=== PATIENT | female | born 1955 | race Caucasian/White ===

== ENCOUNTER 2017-05-15 08:48 | Outpatient (CLI) | payer BC, OTHER ==
--- NOTE | 2017-05-15 11:46 | MMO ---
BILATERAL SCREENING MAMMOGRAMS: Comparison is made to prior mammogram exams dating from 2013, 2014, 2015, and . Interpreted with computer-aided detection. Scattered fibroglandular densities. Scattered benign-appearing calcifications. Intramammary lymph node outer left breast is stable. Biopsy clip in the outer upper left breast again noted. No inter tierney change. Recommend 1-year followup. IMPRESSION: BIRADS 2: Benign Finding(s) Routine annual screening mammography (for women over age 40) POS: [facility]
== END 2017-05-15 08:49 | disposition home or self-care (01) ==
LOC: SCSMAMMO 08:48
PROVIDERS: ATTEND Nurse Practitioner
DX: Z12.31 Encounter for screening mammogram for malignant neoplasm of breast (principal)
CPT/HCPCS: 77067; G0202

== ENCOUNTER 2017-08-16 06:30 | Day surgery (SDC) | payer BC, OTHER ==
[2017-08-15 11:03] VITALS: BMI 28.8
[2017-08-16 07:42] LABS: #Eosinphils 0.1 thou/uL (0.0-0.7); #Monocytes 0.5 thou/uL (0.11-0.59); #Neutrophils 2.9 thou/uL (1.40-6.50); %Basophils 0.8 % (0.0-1.0); %Lymphocytes 35.6 % (21.0-51.0); %Monocytes 9.1 % (0.0-10.0); %Neutrophils 52.6 % (42.0-75.0); Hemoglobin 14.5 g/dL (12.0-16.0); Mean Corpuscular HGB CONC 34.3 g/dL (32.0-36.0); Mean Corpuscular Hemoglobin 33.3 pg (27.0-31.0); Mean Corpuscular Volume 97.1 fl (81.0-99.0); Mean Platelet Volume 8.1 fL (7.4-10.4); Platelet Count 218 thou/uL (130-400); RBC Distribution Width 11.5 % (11.5-14.5); Red Blood Cell (RBC) Count 4.36 mill/uL (4.20-5.40); White Blood Cell (WBC) Count 5.5 thou/uL (4.8-10.8)
[2017-08-16] MEDS ORDERED: CEFAZOLIN/Water 2 GM/20 ML SYRINGE ONE (07:46)
[2017-08-16] MEDS ORDERED: Diprivan 20 ML ONE (07:52)
[2017-08-16 08:06] LABS: Anion Gap 11 mmol/L (10-20); BUN (Urea Nitrogen) 18 mg/dL (9.8-20.1); Calc. Creatinine Clearance 83 mL/min (70-130); Calcium 9.6 mg/dL (7.8-10.44); Carbon Dioxide 26 mmol/L (23-31); Chloride 108 mmol/L (98-107); Estimated GFR-MDRD 61; Glucose 100 mg/dL (80-115); Sodium 141 mmol/L (136-145)
[2017-08-16] MEDS ORDERED: Fentanyl 100 MCG/2 ML VIAL ONE (09:44)
--- NOTE | 2017-08-16 10:38 | OP ---
PREOPERATIVE DIAGNOSIS: Medial and lateral meniscus tear. POSTOPERATIVE DIAGNOSIS: Medial and lateral meniscus tear. SURGEON: Roger Dodson M.D. ANESTHESIA: General. BLOOD LOSS: Minimal. SPECIMEN: None. DRAINS: None. COMPLICATIONS: None. TOURNIQUET TIME: None. FINDINGS AT SURGERY: Grade II chondromalacia patellofemoral joint with small areas of grade III deja dromalacia medial femoral condyle, intact lateral compartment articular cartilage, small tear in the central portion of the lateral meniscus, extensive tear involving most of the posterior medial menisc us. DESCRIPTION OF PROCEDURE: After appropriate consent was obtained, the patient was taken to the opera ting room where general anesthesia was induced. Left leg was prepped and draped in the usual sterile fashion. Scope was placed in the lateral portal and probe was placed in the medial portal. The med ial meniscus was debrided using a 4-0 full radius resector. After removing the loose fibrillated mat erial, I used a large basket forceps to remove a good portion of the posterior half of the medial men iscus. This was then debrided with the shaver and probed and found to be stable. She had unstable a rticular cartilage flap tears in the medial femoral condyle, which were also debrided and lateral men iscus tear with small was debrided with a small basket smoothed using a 4-0 full radius resector. Me niscus was probed on both sides confirmed to be stable. Knee was drained and sterile dressings appli ed. There were no complications.
[2017-08-16] MEDS ORDERED: Bupivacaine HCl 0.5%/Epinephrine 1:200,000/PF 30 ml Vial ONE (11:45)
[2017-08-16] MEDS ORDERED: Lidocaine 2% w/Epinephrine 1:200K 20 ML VIAL ONE (11:45)
[2017-08-16] MEDS ORDERED: Lidocaine 1% PF 5 ML VIAL ONE (12:25)
[2017-08-16] MEDS ORDERED: ePHEDrine/0.9% NaCl/PF SYRINGE 50 mg/10 ml ONE (12:25)
[2017-08-16] MEDS ORDERED: Propofol 200 MG/20 ML VIAL ONE (12:25)
[2017-08-16] MEDS ORDERED: Glycopyrrolate 0.2 MG/ML 5 ML SYRINGE ONE (12:25)
--- NOTE | 2017-08-17 07:17 | EKG ---
Test Reason : PREOP Blood Pressure : / mmHG Vent. Rate : 049 BPM Atrial Rate : 049 BPM P-R Int : 174 ms QRS Dur : 086 ms QT Int : 464 ms P-R-T Axes : 046 015 022 degrees QTc Int : 419 ms Marked sinus bradycardia Nonspecific ST abnormality Abnormal ECG No previous ECGs available Confirmed by ASHLEY LI, DR. Pak ([id number]) on 08/17/2017 7:16:33 AM Referred By: RADHA Confirmed By:DR. Pasha RAMIREZ MD
== END 2017-08-16 12:52 | disposition home or self-care (01) ==
LOC: SDC 06:30
PROVIDERS: ATTEND Orthopaedic Surgery
DX: S83.282A Other tear of lateral meniscus, current injury, left knee, initial encounter (principal); S83.242A Other tear of medial meniscus, current injury, left knee, initial encounter; M22.42 Chondromalacia patellae, left knee; J45.909 Unspecified asthma, uncomplicated; Z79.1 Long term (current) use of non-steroidal anti-inflammatories (NSAID); Z79.899 Other long term (current) drug therapy; Z90.710 Acquired absence of both cervix and uterus; Z90.49 Acquired absence of other specified parts of digestive tract; Z90.89 Acquired absence of other organs; Z98.890 Other specified postprocedural states
CPT/HCPCS: 36415; 80048; 85025; 93005; 93010; G8978-GP-CI; G8979-GP-CI; G8980-GP-CI; J0670; J2001; J2704; J3010

== ENCOUNTER 2017-11-26 12:08 | Outpatient (CLI) | payer OTHER ==
[2017-11-26 12:24] VITALS: BMI 29.1
[2017-11-26 14:09] LABS: #Basophils 0.1 thou/uL (0.0-0.2); #Eosinphils 0.1 thou/uL (0.0-0.7); #Monocytes 0.5 thou/uL (0.11-0.59); #Neutrophils 2.7 thou/uL (1.40-6.50); %Basophils 1.1 % (0.0-1.0); %Eosinophils 1.1 % (0.0-10.0); %Lymphocytes 36.9 % (21.0-51.0); %Monocytes 9.5 % (0.0-10.0); %Neutrophils 51.4 % (42.0-75.0); Mean Corpuscular HGB CONC 33.9 g/dL (32.0-36.0); Mean Corpuscular Hemoglobin 32.5 pg (27.0-31.0); Mean Corpuscular Volume 95.9 fl (81.0-99.0); Mean Platelet Volume 8.4 fL (7.4-10.4); Platelet Count 234 thou/uL (130-400); RBC Distribution Width 11.2 % (11.5-14.5); Red Blood Cell (RBC) Count 4.32 mill/uL (4.20-5.40); White Blood Cell (WBC) Count 5.3 thou/uL (4.8-10.8)
[2017-11-26 14:13] LABS: Bilirubin Negative (Negative); Blood, Urine Negative (Negative); Clarity CLEAR (Clear); Glucose, Urine (Dipstick) Negative (Negative); Leukocyte Trace (Negative); Nitrite Negative (Negative); Protein, Urine (Dipstick) Negative (Neg-Trace); Specific Gravity, Urine 1.012 (1.002-1.036); Urobilinogen 0.2 mg/dL (0.2-1.0); pH, Urine 7.5 (5.0-9.0)
[2017-11-26 14:16] LABS: PTT 27.7 SEC (22.9-36.1); Prothrombin Time 13.8 SEC (12.0-14.7)
[2017-11-26 14:17] LABS: Bacteria/HPF None Seen HPF (None Seen); Hyaline Casts/LPF 0-3 HYALINE CAST LPF (0-3 Hyaline); RBC/HPF 0-3 HPF (0-3); Squamous Epithelial 0-3 HPF (0-3); WBC/HPF None Seen HPF (0-3)
[2017-11-26 14:27] LABS: Anion Gap 14 mmol/L (10-20); BUN (Urea Nitrogen) 16 mg/dL (9.8-20.1); Calc. Creatinine Clearance 90 mL/min (70-130); Calcium 9.2 mg/dL (7.8-10.44); Carbon Dioxide 23 mmol/L (23-31); Chloride 107 mmol/L (98-107); Estimated GFR-MDRD 67; Glucose 76 mg/dL (80-115); Potassium 4.7 mmol/L (3.5-5.1); Sodium 139 mmol/L (136-145)
== END 2017-11-26 12:09 | disposition home or self-care (01) ==
LOC: LABBT 12:08
PROVIDERS: ATTEND Orthopaedic Surgery
DX: Z01.812 Encounter for preprocedural laboratory examination (principal); M16.11 Unilateral primary osteoarthritis, right hip
CPT/HCPCS: 80048; 81001; 85025; 85610; 85730; 86850; 86900; 86901; 87081

== ENCOUNTER 2017-11-26 12:30 | Inpatient (IN) | payer OTHER ==
[2017-12-03] MEDS ORDERED: CEFAZOLIN/Water 2 GM/20 ML SYRINGE ONE (05:55)
[2017-12-03] MEDS ORDERED: Vancomycin HCl 1.5 GM in Sodium Chloride 0.9% 250 ML 300 ML IVPB SCH (06:00)
[2017-12-03] MEDS ORDERED: Midazolam HCl 2 mg/2 ml Vial ONE (06:34)
[2017-12-03] MEDS ORDERED: Fentanyl 100 MCG/2 ML VIAL ONE (06:34)
[2017-12-03] MEDS ORDERED: Bupivacaine 0.25% 10 ML VIAL EPIDURAL PRN ×2 (07:30→08:37)
[2017-12-03] MEDS ORDERED: Naloxone HCl 0.4 mg/ml Vial IVP PRN ×3 (07:30→08:37)
[2017-12-03] MEDS ORDERED: HYDROcodone/Acetaminophen 5/325 mg Tablet PO PRN ×2 (07:30)
[2017-12-03] MEDS ORDERED: traMADol HCl 50 MG TAB PO PRN ×3 (07:30→09:09)
[2017-12-03] MEDS ORDERED: Promethazine HCl 25 MG/ML VIAL IM PRN ×4 (07:30→09:09)
[2017-12-03] MEDS ORDERED: diphenhydrAMINE 50 MG/ML VIAL IM PRN ×2 (07:30→08:37)
[2017-12-03] MEDS ORDERED: Hydrocerin (Eucerin) Cream 120 gm Jar TOP PRN (07:30)
[2017-12-03] MEDS ORDERED: Promethazine HCl 25 MG SUPP PR PRN ×2 (07:30→08:37)
[2017-12-03] MEDS ORDERED: Ondansetron HCl/PF 4 MG/2 ML Vial IVP PRN ×4 (07:30→09:09)
[2017-12-03] MEDS ORDERED: fentaNYL Citrate/PF 1,250 MCG, Bupivacaine 25 ML in Sodium Chloride 0.9% 250 ML 200 ML EPIDURAL SCH (07:30)
[2017-12-03] MEDS ORDERED: Naloxone HCl 0.4 mg/ml Vial IV PRN (07:30)
[2017-12-03] MEDS ORDERED: diphenhydrAMINE 50 MG/ML VIAL IVP PRN ×2 (07:30→08:37)
[2017-12-03] MEDS ORDERED: Zolpidem Tartrate 5 MG TAB PO PRN ×3 (07:30→09:09)
[2017-12-03] MEDS ORDERED: diphenhydrAMINE 25 MG CAP PO PRN ×3 (07:30→09:09)
[2017-12-03] MEDS ORDERED: Bupivacaine/Epinephrine 0.25% 30 ML VIAL ONE (07:33)
[2017-12-03] MEDS ORDERED: Bupivacaine 0.25% HCL 30 ML VIAL ONE (07:36)
[2017-12-03] MEDS ORDERED: Promethazine HCl 25 MG/ML VIAL SLOW IVP PRN (08:37)
[2017-12-03] MEDS ORDERED: Eucerin (Mineral Oil/Petrolatum,White) 30 gm Jar TOP PRN (08:37)
[2017-12-03] MEDS ORDERED: Communication Order-Pharmacy FS SCH ×2 (08:45)
[2017-12-03] MEDS ORDERED: Fentanyl 5 MCG/ 0.75% Bupivacaine 250 ML CADD EPIDURAL SCH (08:45)
[2017-12-03] MEDS ORDERED: Acetaminophen/Codeine 30-300mg Tablet PO PRN ×2 (09:09)
[2017-12-03] MEDS ORDERED: Acetaminophen 325 MG TAB PO PRN ×2 (09:09→11:11)
[2017-12-03] MEDS ORDERED: Fentanyl 100 MCG/2 ML VIAL SLOW IVP PRN ×2 (09:09)
[2017-12-03] MEDS ORDERED: Tranexamic Acid 1,000 MG in Sodium Chloride 0.9% 100 ML IVPB SCH (09:15)
--- NOTE | 2017-12-03 09:45 | RAD ---
TWO VIEWS RIGHT HIP: Comparison: None. History: Status post right hip arthroplasty. FINDINGS: Two views of the right hip shows the patient to be status post right hip arthroplasty without perihar dware lucency or fracture. Surrounding soft tissue swelling and air in the soft tissues is from recen t surgery. IMPRESSION: Status post right hip arthroplasty without evidence of complication. POS: [facility]
[2017-12-03] MEDS ORDERED: Artificial Tears 18 DROP/0.9 ML EA EYE PRN (11:11)
[2017-12-03] MEDS ORDERED: Milk Of Magnesia 30 ML UDCUP PO PRN (11:11)
[2017-12-03] MEDS ORDERED: hydrALAZINE 20 MG/ML VIAL SLOW IVP PRN (11:11)
[2017-12-03] MEDS ORDERED: Diabetic Tussin 200 MG/10 ML UDCUP PO PRN (11:11)
[2017-12-03] MEDS ORDERED: Mag-Al 1200 mg/1200 mg/30 ML UDCUP PO PRN (11:11)
[2017-12-03] MEDS ORDERED: Chloraseptic Spray 180 ml Bottle PO PRN (11:11)
[2017-12-03] MEDS ORDERED: Loperamide HCl 2 MG CAP PO PRN (11:11)
[2017-12-03] MEDS ORDERED: Ondansetron ODT 4 MG TAB PO PRN (11:11)
[2017-12-03] MEDS ORDERED: Bisacodyl 10 MG SUPP PR PRN (11:11)
[2017-12-03] MEDS ORDERED: Albuterol Sulfate 2.5 mg/3 ml Neb NEB PRN (11:12)
--- NOTE | 2017-12-03 12:03 | CON ---
DATE OF CONSULTATION: 12/03/2017 PRIMARY CARE PHYSICIAN: Sg Orlando at [facility]. PRIMARY ATTENDING: Roger Dodson M.D. REASON FOR ADMISSION: Elective admission for right total hip replacement. REASON FOR CONSULT: Medical comanagement. HISTORY OF PRESENT ILLNESS: A 62-year-old female who has ongoing right hip pain. Pain is getting wo rse with walking. Patient's pain is gradually getting worse and she failed outpatient conservative t herapy. Now a days, the patient's right hip was bothering her daily activities and that was limiting her physical activity and that is why patient decided to go for hip replacement. Dr. West bates id right hip replacement earlier today without any complication. Postoperatively, at [facility], we were consulted for medical comanagement. Patient denies any currently chest pain, palpitation, shortness of breath. She denies any UTI sympto ms. She denies any constipation or diarrhea. She denies any abdominal pain. She denies any headach e or sore throat. REVIEW OF SYSTEMS: The following complete review of systems was negative, unless otherwise mentioned in the HPI or below: Constitutional: Weight loss or gain, ability to conduct usual activities. Skin: Rash, itching. Eyes: Double vision, pain. ENT/Mouth: Nose bleeding, neck stiffness, pain, tenderness. Cardiovascular: Palpitations, dyspnea on exertion, orthopnea. Respiratory: Shortness of breath, wheezing, cough, hemoptysis, fever or night sweats. Gastrointestinal: Poor appetite, abdominal pain, heartburn, nausea, vomiting, constipation, or diarr hea. Genitourinary: Urgency, frequency, dysuria, nocturia. Musculoskeletal: Pain, swelling. Neurologic/Psychiatric: Anxiety, depression. Allergy/Immunologic: Skin rash, bleeding tendency. Please see my HPI for pertinent positive and negative. All other review of systems reviewed and nega tive except as mentioned in the HPI. HOSPITAL COURSE: Reviewed. PAST MEDICAL HISTORY: Rheumatic fever when she was 5 years of age, mild intermittent asthma, fibromy algia, vitamin D deficiency. PAST SURGICAL HISTORY: Tonsillectomy, appendicectomy, uterine suspension, cholecystectomy, left danielle st biopsy, hysterectomy, and status post right total hip replacement. PAST PSYCHIATRIC HISTORY: Anxiety and depression. FAMILY HISTORY: Father has hypertension and history of colon cancer. Mother does not have any medic al problem. Hypertension runs among siblings. SOCIAL HISTORY: Patient is . She denies any tobacco, alcohol or illicit drug abuse. Patient is RN. ALLERGIES: No known drug allergy. CURRENT HOME MEDICATIONS: Cetirizine 10 mg p.o. daily, Prozac 60 mg p.o. daily, Mobic 15 mg p.o. yaniv ly, and Inderal 10 mg p.o. daily. PHYSICAL EXAMINATION: VITAL SIGNS: Currently, blood pressure 125/68, pulse 70, respiratory rate 18, saturation 95% on room air, weight 190 pounds. GENERAL: Patient is currently alert, awake, no obvious acute distress. HEAD: Normocephalic, atraumatic. EYES: Pupils round, reactive to light. Extraocular muscle intact. ENT: Oropharynx within normal limits. Moist mucous membranes. No oral lesion, no pharyngeal erythe ma, no exudate. NECK: Supple, no JVD, no thyromegaly, no carotid bruit, no jugular venous distention. LUNGS: Clear to auscultation without any rhonchi or rales. CARDIAC: S1 and S2 regular. No murmur, no gallop, no rub. ABDOMEN: Soft, bowel sounds present, nontender, nondistended. No organomegaly, no mass, no suprapub ic tenderness. BACK: Examination unremarkable, no CVA tenderness. EXTREMITIES: Upper extremity passive movement of all joints are normal. Lower extremity, right hip surgical site is covered with dressing. SCDs in place. No edema, no calf tenderness. Good distal p ulsation. SKIN: No skin rash. HEMATOLOGICAL SYSTEM: No lymphadenopathy. PSYCHIATRIC: Normal affect. NEUROLOGIC: Nonfocal examination. Patient is moving all 4 limbs. Plantar bilateral flexor. SIGNIFICANT LABORATORY DATA AND IMAGING DATA: CBC: WBC 5.3, hemoglobin 14.0, and platelet 234. INR 1.0. BMP: Sodium 139, potassium 4.7, chloride 107, carbon dioxide 23, anion gap 14, BUN 16, creati nine 0.86, glucose 76, calcium 9.2. Urinalysis; leukocyte esterase trace. Hip x-ray reviewed. ASSESSMENT AND PLAN/IMPRESSION: 1. Status post right total hip replacement for advanced osteoarthritis of right hip. The patient is currently on aspirin for deep venous thrombosis prophylaxis. Patient has epidural in place, which i s controlling her pain. We will continue pain medication for better pain control. Patient will have physical therapy/occupational therapy as per [facility] protocol treatment. Patient will be g iven stool softener to prevent constipation. The patient will be given ferrous gluconate 324 mg p.o. b.i.d. postoperatively. 2. Mild intermittent asthma. We will continue albuterol nebulization q.6 hourly p.r.n. basis. 3. Anxiety and depression. We will continue Prozac 60 mg p.o. daily. 4. Vitamin D deficiency. We will continue vitamin D3 1000 units p.o. daily. 5. Fibromyalgia. Patient's pain will be controlled with pain medication. 6. Deep venous thrombosis prophylaxis. The patient is already on aspirin therapy per protocol. 7. Gastrointestinal prophylaxis, Pepcid 20 mg p.o. b.i.d. 8. Code status: The patient is FULL CODE. Patient's is surrogate decision maker. Disposition plan based on clinical course. Thank you for the consult. We will follow up with you while in hospital. Plan of care discussed wit h the patient and her at bedside.
[2017-12-03] MEDS: Sodium Chloride 0.9% 1,000 ML IV SCH ×2 (12:59→19:47)
[2017-12-03] MEDS ORDERED: Dexamethasone 20 MG/5 ML VIAL ONE (13:32)
[2017-12-03] MEDS ORDERED: ePHEDrine/0.9% NaCl/PF SYRINGE 50 mg/10 ml ONE (13:32)
[2017-12-03] MEDS ORDERED: PROPOFOL 200 MG/20 ML VIAL ONE (13:32)
[2017-12-03] MEDS ORDERED: Glycopyrrolate 0.2 MG/ML 5 ML SYRINGE ONE ×2 (13:32)
[2017-12-03] MEDS: Ketorolac Tromethamine 30 MG/ML VIAL IVP SCH ×3 (14:03→23:24)
[2017-12-03] MEDS: CEFAZOLIN/Water 2 GM/20 ML SYRINGE SLOW IVP SCH ×2 (15:35→23:22)
[2017-12-03] MEDS: Aspirin 325 MG TAB PO SCH (20:29)
[2017-12-03] MEDS: Famotidine 20 MG TAB PO SCH (20:29)
[2017-12-04] MEDS: Ketorolac Tromethamine 30 MG/ML VIAL IVP SCH ×4 (05:46→23:35)
[2017-12-04 05:52] LABS: Hemoglobin 10.1 g/dL (12.0-16.0); Mean Corpuscular HGB CONC 33.4 g/dL (32.0-36.0); Mean Corpuscular Hemoglobin 31.8 pg (27.0-31.0); Mean Corpuscular Volume 95.3 fl (81.0-99.0); Mean Platelet Volume 8.1 fL (7.4-10.4); Platelet Count 169 thou/uL (130-400); Red Blood Cell (RBC) Count 3.19 mill/uL (4.20-5.40); White Blood Cell (WBC) Count 9.4 thou/uL (4.8-10.8)
[2017-12-04] MEDS: Sodium Chloride 0.9% 1,000 ML IV SCH ×3 (06:47→23:27)
[2017-12-04] MEDS: Aspirin 325 MG TAB PO SCH ×2 (07:50→20:20)
[2017-12-04] MEDS: Ferrous Gluconate 324 MG TAB PO SCH ×2 (07:50→20:21)
[2017-12-04] MEDS: Propranolol 10 MG TAB PO SCH (07:50)
[2017-12-04] MEDS: Famotidine 20 MG TAB PO SCH ×2 (07:51→20:21)
[2017-12-04] MEDS: Senokot S 8.6-50 MG TAB PO SCH ×2 (07:51→20:20)
[2017-12-04] MEDS: Multivitamin W/ Minerals 1 TAB PO SCH (07:51)
[2017-12-04] MEDS: FLUoxetine HCl 20 MG CAP PO SCH (07:51)
[2017-12-04] MEDS: Loratadine 10 MG TAB PO SCH (07:52)
--- NOTE | 2017-12-04 10:15 | PDOC.PN ---
- Subjective Encounter Start Date: 12/04/17 Encounter Start Time: 08:20 -: old records requested/rev Patient seen and examined for medical management. No new complaints. No overnight events pain controlled, overall doing well - Objective Resuscitation Status: Resuscitation Status FULL:Full Resuscitation MAR Reviewed: Yes Vital Signs & Weight: Vital Signs (12 hours) Temp Pulse Resp BP BP Pulse Ox 12/04/17 07:37 97.4 F L 72 16 99/66 95 12/04/17 06:00 103/67 12/04/17 04:18 98.6 F 72 15 92/56 L 96 12/03/17 23:24 98.5 F 65 18 95/60 65 L I&O: 12/03/17 12/04/17 12/05/17 06:59 06:59 06:59 Intake Total 3300 Output Total 1700 Balance 1600 Result Diagrams: 12/04/17 05:29 Phys Exam - Physical Examination Constitutional: NAD HEENT: PERRLA, moist MMs, sclera anicteric Neck: no JVD, supple Respiratory: no wheezing, no rales, no rhonchi Cardiovascular: RRR, no significant murmur, no rub Gastrointestinal: soft, non-tender, no distention, positive bowel sounds Musculoskeletal: no edema, pulses present epidural in place, surgical site with dressing Neurological: non-focal, normal sensation, moves all 4 limbs Psychiatric: normal affect, A&O x 3 Skin: no rash, normal turgor Dx/Plan (1) Status post total hip replacement, right Code(s): Z96.641 - PRESENCE OF RIGHT ARTIFICIAL HIP JOINT Status: Acute (2) Anemia, normocytic normochromic Code(s): D64.9 - ANEMIA, UNSPECIFIED Status: Chronic (3) Anxiety and depression Code(s): F41.9 - ANXIETY DISORDER, UNSPECIFIED; F32.9 - MAJOR DEPRESSIVE DISORDER, SINGLE EPISODE, UNSPECIFIED Status: Chronic (4) Asthma Code(s): J45.909 - UNSPECIFIED ASTHMA, UNCOMPLICATED Status: Chronic (5) Fibromyalgia Status: Chronic (6) Osteoarthritis Code(s): M19.90 - UNSPECIFIED OSTEOARTHRITIS, UNSPECIFIED SITE Status: Chronic (7) Vitamin D deficiency Code(s): E55.9 - VITAMIN D DEFICIENCY, UNSPECIFIED Status: Chronic - Plan cont current plan of care, PT/OT, DVT proph w/SCDs * pt is on aspirin for DVT prophylaxis as per [facility] protocol * continue PT/OT as per [facility] protocol * pain control with pain meds as below * epidural as per anesthesia * medication reviewed as below * symptomatic treatment * continue pepcid for GI prophylaxis. Review of Systems - Review of Systems Eyes: negative: Pain, Vision Change, Conjunctivae Inflammation, Eyelid Inflammation, Redness, Other ENT: negative: Ear Pain, Ear Discharge, Nose Pain, Nose Discharge, Nose Congestion, Mouth Pain, Mouth Swelling, Throat Pain, Throat Swelling, Other Respiratory: negative: Cough, Dry, Shortness of Breath, Hemoptysis, SOB with Excertion, Pleuritic Pain, Sputum, Wheezing Cardiovascular: negative: chest pain, palpitations, orthopnea, paroxysmal nocturnal dyspnea, edema, light headedness, other Gastrointestinal: negative: Nausea, Vomiting, Abdominal Pain, Diarrhea, Constipation, Melena, Hematochezia, Other Genitourinary: negative: Dysuria, Frequency, Incontinence, Hematuria, Retention , Other Musculoskeletal: negative: Neck Pain, Shoulder Pain, Arm Pain, Back Pain, Hand Pain, Leg Pain, Foot Pain, Other Skin: negative: Rash, Lesions, Jaime, Bruising, Other - Medications/Allergies Allergies/Adverse Reactions: Allergies Allergy/AdvReac Type Severity Reaction Status Date / Time No Known Allergies Allergy Unverified 08/15/17 11:02 Medications: Current Medications Acetaminophen (Tylenol) 650 mg PO Q4H PRN PRN Reason: Headache/Fever or Mild Pain Hydrocodone Bitart/Acetaminophen ([place] 5/325) 1 tab PO Q4H PRN PRN Reason: Mild Pain 0-3 Hydrocodone Bitart/Acetaminophen ([place] 5/325) 2 tab PO Q4H PRN PRN Reason: For Moderate Pain 4-6 Al Hydroxide/Mg Hydroxide (Maalox) 15 ml PO Q4H PRN PRN Reason: Heartburn or Indigestion Albuterol Sulfate (Ventolin) 2.5 mg NEB [id number] PRN PRN Reason: Wheezing Artificial Tears (Tears Naturale) 0 drop EA EYE PRN PRN PRN Reason: Dry Eyes Aspirin (Aspirin) 325 mg PO BID [facility] Last Admin: 12/04/17 07:50 Dose: 325 mg Bisacodyl (Dulcolax) 10 mg CA DAILYPRN PRN PRN Reason: Constipation Diphenhydramine HCl (Benadryl) 25 mg PO Q3H PRN PRN Reason: Itching Diphenhydramine HCl (Benadryl) 25 mg IM Q3H PRN PRN Reason: Itching Diphenhydramine HCl (Benadryl) 25 mg IVP Q3H PRN PRN Reason: Itching Emollient Cream (Hydrocerin Cream) 0 gm TOP PRN PRN PRN Reason: Itching Famotidine (Pepcid) 20 mg PO BID [facility] Last Admin: 12/04/17 07:51 Dose: 20 mg Ferrous Gluconate (Fergon) 324 mg PO BID [facility] Last Admin: 12/04/17 07:50 Dose: 324 mg Fluoxetine HCl (Prozac) 60 mg PO DAILY [facility] Last Admin: 12/04/17 07:51 Dose: 60 mg Guaifenesin (Robitussin Sf) 200 mg PO Q4H PRN PRN Reason: Cough Hydralazine HCl (Apresoline) 10 mg SLOW IVP Q4H PRN PRN Reason: Systolic BP > 180 Fentanyl Citrate 1,250 mcg/Bupivacaine HCl 25 ml/ Sodium Chloride 250 mls @ 4 mls/hr EPIDURAL INF [facility] Sodium Chloride (Normal Saline 0.9%) 1,000 mls @ 100 mls/hr IV .Q10H [facility] Last Admin: 12/04/17 06:47 Dose: Not Given Iron/Minerals/Multivitamins (Theragran M) 1 tab PO DAILY [facility] Last Admin: 12/04/17 07:51 Dose: 1 tab Ketorolac Tromethamine (Toradol) 30 mg IVP Q6HR [facility] Stop: 12/05/17 06:01 Last Admin: 12/04/17 05:46 Dose: 30 mg Loperamide HCl (Imodium) 2 mg PO PRN PRN PRN Reason: Diarrhea/Loose Stools Loratadine (Claritin) 10 mg PO DAILY [facility] Last Admin: 12/04/17 07:52 Dose: 10 mg Magnesium Hydroxide (Milk Of Magnesium) 30 ml PO DAILYPRN PRN PRN Reason: Constipation Mineral Oil/White Petrolatum (Eucerin Cream) 0 gm TOP PRN PRN PRN Reason: Itching Miscellaneous Information (Communication Order-Pharmacy) 1 each FS ASDIR [facility] Miscellaneous Information (Communication Order-Pharmacy) 1 each FS ONE [facility] Stop: 12/05/17 08:46 Naloxone HCl (Narcan) 0.2 mg IV Q5MIN PRN PRN Reason: RR <=8 OR OBTUNDED/UNAROUSABLE Naloxone HCl (Narcan) 0.1 mg IVP Q15MIN PRN PRN Reason: URINARY RETENTION Ondansetron HCl (Zofran) 4 mg IVP Q6H PRN PRN Reason: Nausea/Vomiting Ondansetron HCl (Zofran Odt) 4 mg PO Q6H PRN PRN Reason: Nausea/Vomiting Phenol (Chloraseptic [place] 180 Ml Bot) 0 ml PO PRN PRN PRN Reason: Sore Throat Promethazine HCl (Phenergan) 12.5 mg IM Q4H PRN PRN Reason: Nausea Promethazine HCl (Phenergan Suppository) 25 mg CA Q4H PRN PRN Reason: Nausea/Vomiting Promethazine HCl (Phenergan Suppository) 25 mg CA Q4H PRN PRN Reason: Nausea/Vomiting Propranolol HCl (Inderal) 10 mg PO QAM [facility] Last Admin: 12/04/17 07:50 Dose: 10 mg Senna/Docusate Sodium (Senokot S) 2 tab PO BID [facility] Last Admin: 12/04/17 07:51 Dose: 2 tab Sodium Chloride (Flush - Normal Saline) 10 ml IVF PRN PRN PRN Reason: Saline Flush Tramadol HCl (Ultram) 50 mg PO Q6H PRN PRN Reason: Mild Pain 1-3 Tramadol HCl (Ultram) 100 mg PO Q6H PRN PRN Reason: Moderate Pain 4-6 Zolpidem Tartrate (Ambien) 5 mg PO HSPRN PRN PRN Reason: Insomnia
[2017-12-04 12:22] VITALS: BMI 29.1
[2017-12-05 05:38] LABS: Mean Corpuscular HGB CONC 33.3 g/dL (32.0-36.0); Mean Corpuscular Volume 95.9 fl (81.0-99.0); Mean Platelet Volume 8.2 fL (7.4-10.4); Platelet Count 147 thou/uL (130-400); RBC Distribution Width 11.1 % (11.5-14.5); Red Blood Cell (RBC) Count 3.13 mill/uL (4.20-5.40); White Blood Cell (WBC) Count 7.5 thou/uL (4.8-10.8)
[2017-12-05] MEDS: Ketorolac Tromethamine 30 MG/ML VIAL IVP SCH (06:11)
[2017-12-05] MEDS: Ferrous Gluconate 324 MG TAB PO SCH (08:52)
[2017-12-05] MEDS: FLUoxetine HCl 20 MG CAP PO SCH (08:52)
[2017-12-05] MEDS: Multivitamin W/ Minerals 1 TAB PO SCH (08:52)
[2017-12-05] MEDS: Senokot S 8.6-50 MG TAB PO SCH (08:52)
[2017-12-05] MEDS: Loratadine 10 MG TAB PO SCH (08:53)
[2017-12-05] MEDS: Famotidine 20 MG TAB PO SCH (08:53)
[2017-12-05] MEDS: Propranolol 10 MG TAB PO SCH (08:53)
[2017-12-05] MEDS: Aspirin 325 MG TAB PO SCH (08:53)
--- NOTE | 2017-12-05 09:24 | DIS ---
DATE OF ADMISSION: 12/03/2017 DATE OF DISCHARGE: 12/05/2017 PRIMARY CARE PHYSICIAN: Dr. Yobani Hernandez and Sg Bonner DISCHARGE DISPOSITION: Home with outpatient physical therapy. PRIMARY DISCHARGE DIAGNOSIS: Right total hip replacement. SECONDARY DISCHARGE DIAGNOSES: Anemia normocytic normochromic, anxiety and depression, asthma, fibro myalgia, osteoarthritis, vitamin D deficiency. PRIMARY PROCEDURE/OPERATION: Right hip replacement by Dr. Dodson. RADIOLOGICAL INVESTIGATION: Hip x-ray. SIGNIFICANT LABORATORY DATA: WBC 7.5, hemoglobin 10.0, platelet 147. DISCHARGE MEDICATIONS: Aspirin 325 mg p.o. b.i.d. for DVT prophylaxis, cetirizine 10 mg p.o. daily, Prozac 60 mg p.o. daily, [place] 5 one or two tablets q.4 hourly p.r.n., Mobic 15 mg p.o. daily, Indera l 10 mg p.o. daily. CONTRAINDICATIONS: None. CODE STATUS: FULL CODE. INPATIENT CONSULTANTS: Dr. Dodson was primary Sound Team was consulted for medical comanagement. TEST RESULTS PENDING ON DISCHARGE: None. ALLERGIES: No known drug allergy. DISCHARGE PLAN: Post hospital, the patient will follow up with outpatient physical therapy on 2017. Patient will follow up with Dr. Dodson on 12/25/2017 at 10:15 a.m. The patient will make appoi ntment with primary care physician. HOSPITAL COURSE: A 62-year-old female who was electively admitted by Dr. Dodson for right hip replac ement, which was done on 12/03/2017. Postoperatively, patient was at the [facility] [place]. At that point, we were consulted for medical comanagement. Please see my consult note for further detail. Mini zambrano in hospital, we continued her home medications. She was given aspirin for DVT prophylaxis, Pepc id for gastrointestinal prophylaxis and she had epidural for pain control. Her home medication was r esumed while in hospital as well as on discharge. The patient will have aspirin for DVT prophylaxis upon discharge. Her pain medication prescription given by primary team. The patient did very well per [facility] [place] protocol treatment and the patient is medically stable for discharge today. The patient is seen and examined at bedside today. All review of system reviewed with her and negati ve. PHYSICAL EXAMINATION: VITAL SIGNS: Currently, temperature 98.4, pulse 75, respiratory rate 16, saturation 95% on room air, blood pressure 94/62, and weight 186 pounds. GENERAL: The patient is currently alert, awake, no obvious acute distress. HEAD: Normocephalic, atraumatic. EYES: Pupils round, reactive to light. Extraocular muscle intact. ENT: Oropharynx within normal limits. Moist mucous membranes. NECK: Supple, no JVD, no thyromegaly, no carotid bruit. LUNGS: Clear to auscultation without any rhonchi. CARDIAC: S1 and S2 regular without any murmur. ABDOMEN: Soft and benign. EXTREMITIES: No edema. Surgical site is clean and healthy. NEUROLOGIC: Nonfocal examination. The patient will resume all her previous medication and new medication prescription given by primary care team. We will sign off.
--- NOTE | 2017-12-05 09:58 | PDOC.PN ---
- Subjective Encounter Start Date: 12/05/17 Encounter Start Time: 09:35 Patient seen and examined for medical management. No new complaints. No overnight events - Objective Resuscitation Status: Resuscitation Status FULL:Full Resuscitation MAR Reviewed: Yes Vital Signs & Weight: Vital Signs (12 hours) Temp Pulse Resp BP BP Pulse Ox 12/05/17 07:30 98.4 F 75 16 94/62 95 12/05/17 04:35 98.4 F 70 16 101/64 96 12/04/17 23:35 98.1 F 65 16 103/67 99 Weight Admit Weight 186 lb Weight 186 lb I&O: 12/04/17 12/05/17 12/06/17 06:59 06:59 06:59 Intake Total 3300 950 Output Total 1700 1900 Balance 1600 -950 Result Diagrams: 12/05/17 04:57 Phys Exam - Physical Examination Constitutional: NAD HEENT: PERRLA, moist MMs, sclera anicteric Neck: no JVD, supple Respiratory: no wheezing, no rales, no rhonchi Cardiovascular: RRR, no significant murmur, no rub Gastrointestinal: soft, non-tender, no distention, positive bowel sounds Musculoskeletal: no edema, pulses present Neurological: non-focal, normal sensation, moves all 4 limbs Psychiatric: normal affect, A&O x 3 Skin: no rash, normal turgor Dx/Plan (1) Status post total hip replacement, right Code(s): Z96.641 - PRESENCE OF RIGHT ARTIFICIAL HIP JOINT Status: Acute (2) Anemia, normocytic normochromic Code(s): D64.9 - ANEMIA, UNSPECIFIED Status: Chronic (3) Anxiety and depression Code(s): F41.9 - ANXIETY DISORDER, UNSPECIFIED; F32.9 - MAJOR DEPRESSIVE DISORDER, SINGLE EPISODE, UNSPECIFIED Status: Chronic (4) Asthma Code(s): J45.909 - UNSPECIFIED ASTHMA, UNCOMPLICATED Status: Chronic (5) Fibromyalgia Status: Chronic (6) Osteoarthritis Code(s): M19.90 - UNSPECIFIED OSTEOARTHRITIS, UNSPECIFIED SITE Status: Chronic (7) Vitamin D deficiency Code(s): E55.9 - VITAMIN D DEFICIENCY, UNSPECIFIED Status: Chronic - Plan cont current plan of care, PT/OT, social service manager, DVT proph w/SCDs * pt is currently on aspirin for DVT prophylaxis as per [facility] protocol * continue PT/OT as per [facility] protocol for now * outpt PT after discharge * pain controlled with pain meds as below * epidural will be removed today as per jasbir * medication reviewed as below * symptomatic treatment * continue pepcid for GI prophylaxis. * pt is planned for discharge today * resume home medication on discharge * stable for discharge medically * pain meds on discharge as per primary team * see my discharge summery. Review of Systems - Review of Systems Eyes: negative: Pain, Vision Change, Conjunctivae Inflammation, Eyelid Inflammation, Redness, Other ENT: negative: Ear Pain, Ear Discharge, Nose Pain, Nose Discharge, Nose Congestion, Mouth Pain, Mouth Swelling, Throat Pain, Throat Swelling, Other Respiratory: negative: Cough, Dry, Shortness of Breath, Hemoptysis, SOB with Excertion, Pleuritic Pain, Sputum, Wheezing Cardiovascular: negative: chest pain, palpitations, orthopnea, paroxysmal nocturnal dyspnea, edema, light headedness, other Gastrointestinal: negative: Nausea, Vomiting, Abdominal Pain, Diarrhea, Constipation, Melena, Hematochezia, Other Genitourinary: negative: Dysuria, Frequency, Incontinence, Hematuria, Retention , Other Musculoskeletal: negative: Neck Pain, Shoulder Pain, Arm Pain, Back Pain, Hand Pain, Leg Pain, Foot Pain, Other Skin: negative: Rash, Lesions, Jaime, Bruising, Other - Medications/Allergies Allergies/Adverse Reactions: Allergies Allergy/AdvReac Type Severity Reaction Status Date / Time No Known Allergies Allergy Unverified 08/15/17 11:02 Medications: Current Medications Acetaminophen (Tylenol) 650 mg PO Q4H PRN PRN Reason: Headache/Fever or Mild Pain Last Admin: 12/05/17 06:11 Dose: 650 mg Hydrocodone Bitart/Acetaminophen ([place] 5/325) 1 tab PO Q4H PRN PRN Reason: Mild Pain 0-3 Hydrocodone Bitart/Acetaminophen ([place] 5/325) 2 tab PO Q4H PRN PRN Reason: For Moderate Pain 4-6 Al Hydroxide/Mg Hydroxide (Maalox) 15 ml PO Q4H PRN PRN Reason: Heartburn or Indigestion Albuterol Sulfate (Ventolin) 2.5 mg NEB [id number] PRN PRN Reason: Wheezing Artificial Tears (Tears Naturale) 0 drop EA EYE PRN PRN PRN Reason: Dry Eyes Aspirin (Aspirin) 325 mg PO BID [facility] Last Admin: 12/05/17 08:53 Dose: 325 mg Bisacodyl (Dulcolax) 10 mg NC DAILYPRN PRN PRN Reason: Constipation Diphenhydramine HCl (Benadryl) 25 mg PO Q3H PRN PRN Reason: Itching Diphenhydramine HCl (Benadryl) 25 mg IM Q3H PRN PRN Reason: Itching Diphenhydramine HCl (Benadryl) 25 mg IVP Q3H PRN PRN Reason: Itching Emollient Cream (Hydrocerin Cream) 0 gm TOP PRN PRN PRN Reason: Itching Famotidine (Pepcid) 20 mg PO BID [facility] Last Admin: 12/05/17 08:53 Dose: 20 mg Ferrous Gluconate (Fergon) 324 mg PO BID [facility] Last Admin: 12/05/17 08:52 Dose: 324 mg Fluoxetine HCl (Prozac) 60 mg PO DAILY [facility] Last Admin: 12/05/17 08:52 Dose: 60 mg Guaifenesin (Robitussin Sf) 200 mg PO Q4H PRN PRN Reason: Cough Hydralazine HCl (Apresoline) 10 mg SLOW IVP Q4H PRN PRN Reason: Systolic BP > 180 Fentanyl Citrate 1,250 mcg/Bupivacaine HCl 25 ml/ Sodium Chloride 250 mls @ 4 mls/hr EPIDURAL INF [facility] Sodium Chloride (Normal Saline 0.9%) 1,000 mls @ 100 mls/hr IV .Q10H [facility] Last Admin: 12/04/17 23:27 Dose: Not Given Iron/Minerals/Multivitamins (Theragran M) 1 tab PO DAILY [facility] Last Admin: 12/05/17 08:52 Dose: 1 tab Loperamide HCl (Imodium) 2 mg PO PRN PRN PRN Reason: Diarrhea/Loose Stools Loratadine (Claritin) 10 mg PO DAILY [facility] Last Admin: 12/05/17 08:53 Dose: 10 mg Magnesium Hydroxide (Milk Of Magnesium) 30 ml PO DAILYPRN PRN PRN Reason: Constipation Mineral Oil/White Petrolatum (Eucerin Cream) 0 gm TOP PRN PRN PRN Reason: Itching Miscellaneous Information (Communication Order-Pharmacy) 1 each FS ASDIR [facility] Naloxone HCl (Narcan) 0.2 mg IV Q5MIN PRN PRN Reason: RR <=8 OR OBTUNDED/UNAROUSABLE Naloxone HCl (Narcan) 0.1 mg IVP Q15MIN PRN PRN Reason: URINARY RETENTION Ondansetron HCl (Zofran) 4 mg IVP Q6H PRN PRN Reason: Nausea/Vomiting Ondansetron HCl (Zofran Odt) 4 mg PO Q6H PRN PRN Reason: Nausea/Vomiting Phenol (Chloraseptic [place] 180 Ml Bot) 0 ml PO PRN PRN PRN Reason: Sore Throat Promethazine HCl (Phenergan) 12.5 mg IM Q4H PRN PRN Reason: Nausea Promethazine HCl (Phenergan Suppository) 25 mg NC Q4H PRN PRN Reason: Nausea/Vomiting Promethazine HCl (Phenergan Suppository) 25 mg NC Q4H PRN PRN Reason: Nausea/Vomiting Propranolol HCl (Inderal) 10 mg PO QAM [facility] Last Admin: 12/05/17 08:53 Dose: Not Given Senna/Docusate Sodium (Senokot S) 2 tab PO BID [facility] Last Admin: 12/05/17 08:52 Dose: 2 tab Sodium Chloride (Flush - Normal Saline) 10 ml IVF PRN PRN PRN Reason: Saline Flush Last Admin: 12/04/17 18:22 Dose: 10 ml Tramadol HCl (Ultram) 50 mg PO Q6H PRN PRN Reason: Mild Pain 1-3 Tramadol HCl (Ultram) 100 mg PO Q6H PRN PRN Reason: Moderate Pain 4-6 Zolpidem Tartrate (Ambien) 5 mg PO HSPRN PRN PRN Reason: Insomnia
[2017-12-05 12:08] VITALS: BP 91/56; TEMP 98.3
[2017-12-05] MEDS: Sodium Chloride 0.9% 1,000 ML IV SCH (13:13)
--- NOTE | 2017-12-10 10:24 | OP ---
DATE OF PROCEDURE: 12/03/2017 PREOPERATIVE DIAGNOSIS: End-stage bicompartmental osteoarthritis, right hip. POSTOPERATIVE DIAGNOSIS: End-stage bicompartmental osteoarthritis, right hip. PROCEDURE: Press-fit right total hip arthroplasty. SURGEON: Roger Dodson M.D. PHYSICAL THERAPY PROFESSOR: Adrienne Tinajero PA-C COMPONENTS USED: [employer] size 3.5 Accolade press-fit hip stem with a 50 mm press fit PSL acetabular cup and a 36 mm 10 degree polyethylene liner. A 36 mm metallic femoral head with a neutr al offset. ESTIMATED BLOOD LOSS: 150 mL. FINDINGS: End-stage severe degenerative bicompartmental disease, bone on bone arthrosis, periarticul ar osteophyte formation, large serous effusion and hypertrophic synovium and capsule. DRAINS: None. SPECIMENS: None. COMPLICATIONS: None. COUNTS: Correct. INDICATIONS FOR SURGERY: Julieta is a 62-year-old white female who has progressive right hip, groin an d thigh pain amplified with standing and walking for the last 5-7 years. She has failed conservative management and elected to proceed with a right total hip arthroplasty as definitive treatment of her pain. PROCEDURE IN DETAIL: After informed consent was obtained in the preoperative holding area, the patie nt was taken to the operative suite where general anesthesia was induced. The patient was then posit ioned in the lateral decubitus position. The hip was then prepped and draped in usual sterile fashio n. The patient received preoperative antibiotics. Prior to incision, time-out was called and all me mbers of the surgical team agreed upon site, surgeon, and patient. After this, a longitudinal incisi on was made directly over the trochanter, noted by palpation extending 2 fingerbreadths above and bel ow the trochanter. The deeper subcutaneous layer was undermined with Bovie electrocautery. The ilio tibial band was encountered and incised sharply and the plane below this was developed bluntly. A jose davidley retractor was placed to hold this opened. The lateral aspect of the trochanter and the abduct or muscles were encountered and then reflected anteriorly off the trochanter using Bovie electrocaute ry. Once this was completed, the anterior capsule was then encountered and identified and copious ca psulotomy was carried out, exposing the femoral neck and head. Dislocation maneuver was then performe d and an in situ provisional neck cut was then made using the oscillating saw. Attention was then tu rned to acetabular preparation and sequential reaming was carried out up to the appropriate diameter and a trial was then malleted into place with good firm resistance and no pullout. The permanent jeff tabular shell was then malleted squarely into place, as was the appropriate liner. Once completed, t he wound was copiously irrigated and attention was then turned to femoral preparation. Flexion and ex ternal rotation was performed of the exposed thigh and femoral elevators were then placed at the prox imal aspect of the wound. Canal finder was used to establish the length of the canal and sequential reaming was carried out, followed by broaching. Once the appropriate stability was established with the trial broaches with both flexion, extension and rotational stability, we did trial with neutral a nd 2 mm offset incremental necks. Once the appropriate size was decided upon, with good stability no lavern with flexion, extension, internal and external rotation and shuck being negative, we removed the femoral trial broach and malletted into place the permanent prosthesis with good firm fit, which was also stable to rotation. Again, the hip felt very stable to flexion, extension, internal and externa l rotation. Leg lengths appeared near anatomic clinically and we were quite happy with prosthesis pl acement. Copious irrigation was then carried out through the entirety of the wound. Primary closure of the abductors was accomplished with interrupted #2 Vicryl [id number] stitches and the IT ban d was then closed with interrupted #2 Vicryl, oversewn with a #2 running barbed Quill stitch. Subcut aneous fascia was closed with running barbed Quill stitch and a subcuticular Monocryl barbed Quill st itch was used for skin closure and augmented with skin cement. A sterile dressing was applied. The p rocedure was terminated without any complication. All counts were correct. The patient was awakened in the operative suite and taken to the recovery room in stable condition.
--- NOTE | 2017-12-10 10:50 | OP ---
DATE OF PROCEDURE: 12/03/2017 PREOPERATIVE DIAGNOSIS: End-stage bicompartmental osteoarthritis, right hip. POSTOPERATIVE DIAGNOSIS: End-stage bicompartmental osteoarthritis, right hip. PROCEDURE: Press-Fit right total hip arthroplasty. SURGEON: Roger Dodson M.D. PHARMACY AIDE: Adrienne Tinajero PA-C. COMPONENTS USED: [employer] Accolade Press-Fit hip stem size 3.5 with 50 mm Press-Fit PSL ac etabular shell. A 36 mm 10 degree polyethylene fixed bearing insert and neutral offset 36 mm metalli c femoral head. FINDINGS: End-stage severe degenerative bicompartmental disease, bone on bone arthrosis, periarticul ar osteophyte formation, large serous effusion, hypertrophic synovium and capsule. ESTIMATED BLOOD LOSS: 100 mL. DRAINS: None. SPECIMENS: None. COMPLICATIONS: None. COUNTS: Correct. INDICATIONS FOR SURGERY: Julieta is a 62-year-old white female who has had progressive right hip, groi n and thigh pain for the last 5-7 years. She has failed conservative management and elected to proce ed with total hip arthroplasty as definitive treatment of her pain. PROCEDURE IN DETAIL: After informed consent was obtained in the preoperative holding area, the patie nt was taken to the operative suite where general anesthesia was induced. The patient was then posit ioned in the lateral decubitus position. The hip was then prepped and draped in usual sterile fashio n. The patient received preoperative antibiotics. Prior to incision, time-out was called and all me mbers of the surgical team agreed upon site, surgeon, and patient. After this, a longitudinal incisi on was made directly over the trochanter, noted by palpation extending 2 fingerbreadths above and bel ow the trochanter. The deeper subcutaneous layer was undermined with Bovie electrocautery. The ilio tibial band was encountered and incised sharply and the plane below this was developed bluntly. A darcie retractor was placed to hold this opened. The lateral aspect of the trochanter and the abduct or muscles were encountered and then reflected anteriorly off the trochanter using Bovie electrocaute ry. Once this was completed, the anterior capsule was then encountered and identified and copious ca psulotomy was carried out, exposing the femoral neck and head. Dislocation maneuver was then performe d and an in situ provisional neck cut was then made using the oscillating saw. Attention was then tu rned to acetabular preparation and sequential reaming was carried out up to the appropriate diameter and a trial was then malleted into place with good firm resistance and no pullout. The permanent jeff tabular shell was then malleted squarely into place, as was the appropriate liner. Once completed, t he wound was copiously irrigated and attention was then turned to femoral preparation. Flexion and ex ternal rotation was performed of the exposed thigh and femoral elevators were then placed at the prox imal aspect of the wound. Canal finder was used to establish the length of the canal and sequential reaming was carried out, followed by broaching. Once the appropriate stability was established with the trial broaches with both flexion, extension and rotational stability, we did trial with neutral a nd 2 mm offset incremental necks. Once the appropriate size was decided upon, with good stability no lavern with flexion, extension, internal and external rotation and shuck being negative, we removed the femoral trial broach and malletted into place the permanent prosthesis with good firm fit, which was also stable to rotation. Again, the hip felt very stable to flexion, extension, internal and externa l rotation. Leg lengths appeared near anatomic clinically and we were quite happy with prosthesis pl acement. Copious irrigation was then carried out through the entirety of the wound. Primary closure of the abductors was accomplished with interrupted #2 Vicryl icinie-sh-oroln stitches and the IT ban d was then closed with interrupted #2 Vicryl, oversewn with a #2 running barbed Quill stitch. Subcut aneous fascia was closed with running barbed Quill stitch and a subcuticular Monocryl barbed Quill st itch was used for skin closure and augmented with skin cement. A sterile dressing was applied. The p rocedure was terminated without any complication. All counts were correct. The patient was awakened in the operative suite and taken to the recovery room in stable condition.
== END 2017-12-05 16:12 | disposition home or self-care (01) | DRG 470 ==
LOC: SJJU 12-03 05:30
PROVIDERS: ADMIT Orthopaedic Surgery; ATTEND Orthopaedic Surgery
PROC: 0SR902A Replacement of Right Hip Joint with Metal on Polyethylene Synthetic Substitute, Uncemented, Open Approach (ICD-10-PCS; principal; 2017-12-03)
DX: M16.11 Unilateral primary osteoarthritis, right hip (principal); D64.9 Anemia, unspecified; F41.9 Anxiety disorder, unspecified; F32.9 Major depressive disorder, single episode, unspecified; J45.909 Unspecified asthma, uncomplicated; M79.7 Fibromyalgia; M19.90 Unspecified osteoarthritis, unspecified site; E55.9 Vitamin D deficiency, unspecified; Z90.49 Acquired absence of other specified parts of digestive tract; Z90.710 Acquired absence of both cervix and uterus
CPT/HCPCS: 36415; 85027; G8978-GP-CL; G8979-GP-CJ; G8987-GO-CI; G8988-GO-CI; G8989-GO-CI; J1100; J1885; J2250; J2704; J3010; J3370; J3490; J7050; S0020

== ENCOUNTER 2020-04-05 12:16 | Outpatient (CLI) | payer MEDICARE, OTHER ==
--- NOTE | 2020-04-05 14:10 | MMO ---
Bilateral MAMMO Bilat Screen [facility]. CLINICAL HISTORY: Patient is 64 years old and is seen for screening. The patient has the following family history of breast cancer: paternal aunt, 60's. The patient has no personal history of cancer. VIEWS: The views performed were: bilateral craniocaudal with tomosynthesis and bilateral mediolateral oblique with tomosynthesis. FILMS COMPARED: The present examination has been compared to prior imaging studies performed at [facility] on 05/15/2017, and at [facility] on 01/20/2014, 01/20/2015 and 04/04/2016. This study has been interpreted with the assistance of computer-aided detection. MAMMOGRAM FINDINGS: There are scattered fibroglandular densities. Benign calcifications are noted bilaterally. Left biopsy clip. There are no suspicious masses, suspicious calcifications, or new areas of architectural distortion. IMPRESSION: THERE IS NO MAMMOGRAPHIC EVIDENCE OF MALIGNANCY. A ROUTINE FOLLOW-UP MAMMOGRAM IN 1 YEAR IS RECOMMENDED. THE RESULTS OF THIS EXAM WERE SENT TO THE PATIENT. ACR BI-RADS Category 2 - Benign finding MAMMOGRAPHY NOTE: 1. A negative mammogram report should not delay a biopsy if a dominant of clinically suspicious mass is present. 2. Approximately 10% to 15% of breast cancers are not detected by mammography. 3. Adenosis and dense breasts may obscure an underlying neoplasm. Reported by: CELSA SAMUEL MD Electonically Signed: [id number]
== END 2020-04-05 12:17 | disposition home or self-care (01) ==
LOC: BICMAMMO 12:16
DX: Z12.31 Encounter for screening mammogram for malignant neoplasm of breast (principal); Z80.3 Family history of malignant neoplasm of breast
CPT/HCPCS: 77063; 77067

== ENCOUNTER 2021-04-07 09:39 | Outpatient (CLI) | payer MEDICARE, OTHER | END 2021-04-07 09:40 | disposition home or self-care (01) | LOC: BICMAMMO 09:39 | PROVIDERS: ATTEND Family Medicine | DX: Z12.31 Encounter for screening mammogram for malignant neoplasm of breast (principal); Z80.3 Family history of malignant neoplasm of breast | CPT/HCPCS: 77063; 77067 ==

== ENCOUNTER 2022-05-10 13:57 | Outpatient (CLI) | payer MEDICARE, OTHER | END 2022-05-10 13:58 | disposition home or self-care (01) | LOC: BICMAMMO 13:57 | PROVIDERS: ATTEND Nurse Practitioner Family | DX: Z12.31 Encounter for screening mammogram for malignant neoplasm of breast (principal); R92.1 Mammographic calcification found on diagnostic imaging of breast; Z80.3 Family history of malignant neoplasm of breast; Z91.89 Other specified personal risk factors, not elsewhere classified | CPT/HCPCS: 77063; 77067 ==

== ENCOUNTER 2023-07-12 13:06 | Outpatient (CLI) | payer MEDICARE, OTHER | END 2023-07-12 13:07 | disposition home or self-care (01) | LOC: BICMAMMO 13:06 | PROVIDERS: ATTEND Nurse Practitioner Family | DX: Z12.31 Encounter for screening mammogram for malignant neoplasm of breast (principal); Z80.3 Family history of malignant neoplasm of breast; Z91.89 Other specified personal risk factors, not elsewhere classified | CPT/HCPCS: 77063; 77067 ==

== ENCOUNTER 2024-08-07 11:17 | Outpatient (CLI) | payer MEDICARE, OTHER | END 2024-08-07 11:18 | disposition home or self-care (01) | LOC: BICMAMMO 11:17 | PROVIDERS: ATTEND Nurse Practitioner Family | DX: Z12.31 Encounter for screening mammogram for malignant neoplasm of breast (principal) | CPT/HCPCS: 77063; 77067 ==